=== PATIENT | male | born 1950 | race Caucasian/White ===

== ENCOUNTER 2018-11-03 05:00 | Inpatient (IN) ==
--- NOTE | 2018-09-28 12:00 | Anesthesiology Consultation ---
Date of Service September 28, 2018 Assessment & Plan (1) Encounter for pre-operative examination: Chart Review Chart Review: Acceptable Risk for Surgery and Patient seen in Pre Admission Testing Teaching & Discussion Instructed NPO after midnight before surgery, except medications with 15 cc of water. Medication instructions provided according to the PAT guidelines. History Surgery Operation Date: 11/03/18 08:50 Proposed Procedures p Left Total Hip Arthroplasty - Leonel Munoz MD Height/Weight Height: 6 ft 1 in Weight: 108.1 kg Allergies Allergy/AdvReac Type Severity Reaction Status Date / Time No Known Allergies Allergy Verified 09/21/18 11:19 Medications Home Medications Medication Instructions Recorded Confirmed Last Taken aspirin 162 mg PO QAM 09/21/18 09/21/18 Unknown cyanocobalamin (vitamin B-12) 1,000 mcg PO QAM 09/21/18 09/21/18 Unknown [Vitamin B-12] ginseng 100 mg PO QAM 09/21/18 09/21/18 Unknown omega 3-fhj-pfv-fish oil [Fish Oil] 1 tab PO QAM 09/21/18 09/21/18 Unknown multivitamin 1 tab PO 09/28/18 Unknown Past Medical History Medical History DJD (degenerative joint disease) LEFT HIP Obesity Past Surgical History Surgical History History of cataract surgery RIGHT AND LEFT History of excision of lesion LIPOMAS. ONE FROM RIGHT SHOULDER AND ONE FROM LEFT INNER THIGH History of herniorrhaphy UMBILICAL Past Anesthesia History No Hx of Anesthesia Complications and No Family Hx of Anesthesia Complications History of PONV No Motion Sickness Screening History of Motion Sickness: No Social History Smoking Status: Never smoker Do You Dip or Chew Tobacco: No Hx Alcohol Use: No Hx Substance Use: No substance use type: does not use Exercise / Class Metabolic Activity II 4-5 Yardwork/Stairs/Walk up hill (No CP or SOB with stairs but has to go slow 2/2 hip pain) Review of Systems Pt denies any recent chest pain, shortness of breath, palpitations, cough, fever or URI. Physical Exam Vital Signs BP: 131/73 P: 56 SPO2: 96% RA T: 98.0 R: 16 ENMT Mouth: + poor dentition (missing several) and + chipped teeth; no dental restorations and no loose teeth Thyromental Distance: < 3.5 Finger Breadths (3) Mallampati Class: II Mouth / Teeth: 2 1. missing Neck normal visual inspection and + facial hair (pt will shave p/t surgery); neck extension not limited Respiratory normal respiratory effort Auscultation: lungs clear to auscultation bilaterally Cardiovascular Rate/Rhythm: regular rate and regular rhythm Heart Sounds: no murmur Vessels: no carotid bruit Testing Electrocardiogram Date: 09/28/18 Findings: + SB @ (53) Increased R/S ratio in V1, consider early transition or posterior infarct. Chest X-Ray Date: 09/28/18 Findings: + NAD and + cardiomegaly (mild) Laboratory Results 09/28/18 11:45 09/28/18 11:45 Blood Type O Positive 09/28/18 11:45 Antibody Screen NEGATIVE 09/28/18 11:45 PT 10.1 Seconds (9.0-12.0) 09/28/18 11:45 INR 1.0 (0.9-1.1) 09/28/18 11:45 APTT 26.8 Seconds (21.0-31.0) 09/28/18 11:45
--- NOTE | 2018-09-28 12:07 | PAT Medication Instructions ---
Medication Instructions Date of Service September 28, 2018 Home Medications aspirin 162 mg PO QAM cyanocobalamin (vitamin B-12) 1,000 mcg PO QAM ginseng 100 mg PO QAM omega 7-jfj-jhg-fish oil [Fish Oil] 1 tab PO QAM multivitamin 1 tab PO ASK your surgeon for instructions aspirin 162 mg PO QAM STOP taking 2 weeks before surgery ginseng 100 mg PO QAM omega 2-zyz-okx-fish oil [Fish Oil] 1 tab PO QAM DO NOT take the morning of surgery cyanocobalamin (vitamin B-12) 1,000 mcg PO QAM multivitamin 1 tab PO QAM Other Notes If you have any questions please call us at [phone] or [phone] or [phone] or [phone]
--- NOTE | 2018-09-28 13:02 | XRay Report ---
XR chest Pre-admission PA/Lat CLINICAL HISTORY: Preoperative evaluation. COMPARISON STUDY: No previous studies for comparison. FINDINGS: There is no pneumothorax or pleural effusion. Mild lung hyperexpansion is noted. There is n o evidence for pulmonary edema. There is mild cardiomegaly. A 1.2 cm calcified right upper lobe nodul e is present. IMPRESSION: 1. No acute cardiopulmonary findings. 2. Mild cardiomegaly. Electronically signed by: Carlos Caldwell M.D. 09/28/2018 1:01 PM
[2018-09-28 13:17] LABS: Basophils # (auto) 0.02 K/uL (0-0.2); Basophils % (auto) 0.5 %; Eosinophils # (auto) 0.13 K/uL (0-0.5); Eosinophils % (auto) 3.2 %; Hemoglobin 14.3 g/dL (14.0-18.0); Immature Granulocytes # (auto) 0.01 K/uL (0.00-0.02); Immature Granulocytes % (auto) 0.2 %; Lymphocytes # (auto) 0.66 K/uL (1.2-3.4); Lymphocytes % (auto) 16.4 %; Mean Corpuscular Hgb Conc 33.3 g/dL (32-36); Mean Platelet Volume 11.1 fL (7.4-10.4); Monocytes # (auto) 0.48 K/uL (0.11-0.59); Monocytes % (auto) 11.9 %; Neutrophils # (auto) 2.73 K/uL (1.4-6.5); Neutrophils % (auto) 67.8 %; Platelet Count 181 K/uL (130-400); RDW Coefficient of Variation 13.6 % (11.5-14.5); RDW Standard Deviation 42.7 fL (36.4-46.3); White Blood Count 4.03 K/uL (4.8-10.8)
[2018-09-28 13:27] LABS: Partial Thromboplastin Time 26.8 Seconds (21.0-31.0); Prothrombin Time 10.1 Seconds (9.0-12.0)
[2018-09-28 13:46] LABS: BUN Creatinine Ratio 16.2 (10-20); Calcium 8.6 mg/dl (8.5-10.1); Creatinine Clr Calc Pharmacy 130.3 ml/min; Est GFR (African American) 112.3; Est GFR (Non-African American) 96.9
--- NOTE | 2018-10-31 13:38 | History and Physical Report ---
DATE OF ADMISSION: 11/03/2018 CHIEF COMPLAINT: Left hip pain, discomfort and stiffness. 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 He has had a 4-5 year history of increasing left hip pain and discomfort. He describes groin pain, thigh pain and some lateral hip pain. He has pain with walking activities. His walking tolerance is a couple blocks at best. 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 The more he stands, the more it hurts. By the end of the day, he is really struggling. He has difficulty putting his shoes and socks on. He would like to proceed with definitive treatment. PAST MEDICAL HISTORY: 1. Sleep apnea. 2. Low back pain/sciatica. 3. BPH. PAST SURGICAL HISTORY: Previous surgeries include: 1. Multiple fatty tumors removal. 2. Tonsillectomy. 3. Cataract surgery. 4. Herniorrhaphy. ALLERGIES: None. CURRENT MEDICINES: 1. Multivitamin. 2. Baby aspirin. 3. Vitamin B12. 4. Ginseng. 5. Fish oil. SOCIAL HISTORY: A 67-year-old male. 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 Five children. Rare alcohol intake. Does not smoke. FAMILY HISTORY: Noncontributory. REVIEW OF SYSTEMS: Negative for diabetes, neurologic problems, vascular problems, bleeding disorders. No chest pain or shortness of breath. No history of DVT or PE. PHYSICAL EXAMINATION: GENERAL: Reveals a healthy, pleasant middle-aged male. Looks to be in pretty good health. HEENT: Benign. NECK: Supple. No lymphadenopathy. LUNGS: Clear to auscultation. HEART: Has a regular rate and rhythm. ABDOMEN: Soft, nontender, nondistended. EXTREMITIES: Grossly neurovascularly intact except as follows: Examination of the left hip reveals the patient walks with an antalgic gait. He does limp a little bit on the left side. He has got very stiff hips with any attempt at rotation and has pain. Clinically, leg lengths are pretty equal. He can internally rotate to -5 and external rotation to 12 degrees. Negative straight leg raise. X-RAYS: X-rays of left hip were reviewed. It shows advanced left hip DJD. He has got complete loss of his joint space. He has got fairly concentric disease. Pretty significant osteophytes in and around the femoral head. Diffuse osteopenia and very thin cortices. 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 It is really affecting his quality of life and ability to do his job. PLAN: We talked about treatment. He would like to proceed with total hip replacement. We will take him to the operating room and do a left total hip replacement. The risks and benefits of the procedure were explained to the patient including but not limited to DVT, PE, , infection, neurological injury, vascular injury, bleeding problem, pain, limited range of motion, stiffness, failure to relieve symptoms, incomplete relief of symptoms, need for further surgery in the future, etc. The patient understands and desires to proceed. Informed consent was obtained. He does have fairly diffuse osteopenia. We will try to use an uncemented stem, but we may need to put a cemented stem in. We will be prepared for that. As far as discharge plans, he is planning to be discharged to home using [facility] home health program.
[2018-11-03] MEDS: LR 500ML BOLUS, THEN 15ML/HR IV SCH ×5 (05:30→17:46)
[2018-11-03] MEDS ORDERED: TRANEXAMIC ACID 1,000 MG **IV Pre-op IV SCH (06:00)
[2018-11-03] MEDS ORDERED: LR 60ML/HR IV SCH (06:00)
[2018-11-03] MEDS ORDERED: GABAPENTIN 300 MG PO SCH (06:00)
[2018-11-03] MEDS ORDERED: ACETAMINOPHEN 500 MG TAB PO SCH (06:00)
[2018-11-03] MEDS ORDERED: FAMOTIDINE 20 MG TAB PO SCH (06:00)
[2018-11-03] MEDS ORDERED: CEFAZOLIN 2000MG 2,000 MG/15 ML SYR IV SCH (06:00)
[2018-11-03] MEDS ORDERED: SCOPOLAMINE 1.5 MG TDSY TD SCH (06:00)
[2018-11-03] MEDS ORDERED: METOCLOPRAMIDE HCL 10 MG TABLET PO SCH (06:00)
[2018-11-03] MEDS ORDERED: MIDAZOLAM HCL 1 MG/ML 2ML VIAL ONE (06:25)
[2018-11-03] MEDS ORDERED: fentaNYL citrate 100 MCG/2 ML VIAL ONE (06:25)
[2018-11-03] MEDS ORDERED: BUPIVACAINE 0.5 % 5 MG/1 ML PF 10ML VIAL ONE (06:30)
[2018-11-03] MEDS ORDERED: BACITRACIN INJ 50,000 UNIT VIAL ONE (06:33)
[2018-11-03] MEDS ORDERED: BUPIVACAINE/EPINEPHRINE 0.5% MPF 1:200,000 30 ML VIAL ONE (06:33)
[2018-11-03] MEDS ORDERED: MoRPHine SULFATE PF 1 MG/ML 10 ML AMP/VIAL ONE (06:37)
--- NOTE | 2018-11-03 06:49 | History & Physical Bridge Note ---
Date of Service November 03, 2018 History & Physical Bridge Note I have examined the patient, reviewed the History & Physical and in the interval since the performance of the History & Physical I have noted the following changes of clinical significance: no changes noted
[2018-11-03] MEDS ORDERED: ePHEDrine sulfate 50 MG/ML AMP IV PRN (07:10)
[2018-11-03] MEDS ORDERED: HYDROmorphone INJ 0.5 MG/0.5 ML SYR IV PRN (07:10)
[2018-11-03] MEDS ORDERED: ONDANSETRON INJ 2 MG/ML 2 ML VIAL IV PRN (07:10)
[2018-11-03] MEDS ORDERED: MoRPHine SULFATE PF 1 MG/ML 10 ML AMP/VIAL INT SPINAL ONE (07:10)
[2018-11-03] MEDS ORDERED: LACTATED RINGER'S 500 ML IV PRN (07:10)
[2018-11-03] MEDS ORDERED: NALOXONE HCL 0.4 MG/1 ML VIAL/CARP IV PRN ×2 (07:10→09:55)
[2018-11-03] MEDS ORDERED: NALOXONE HCL 1 MG in SODIUM CHLORIDE 0.9% 1000ML 1,000 ML IV PRN (07:10)
[2018-11-03] MEDS ORDERED: NALBUPHINE HCL INJ 10 MG/ML AMP IV PRN (07:10)
[2018-11-03] MEDS ORDERED: NALOXONE HCL 0.08 MG in SYRINGE 1.8 ML IV PRN (07:10)
[2018-11-03] MEDS ORDERED: DiphenhydrAMINE HCL 50 MG/ML VIAL IV PRN (07:10)
[2018-11-03] MEDS ORDERED: MoRPHine SULFATE 2 MG/ML CARP IV PRN (07:10)
[2018-11-03] MEDS ORDERED: SODIUM CHLORIDE 0.9% 1000ML 1,000 ML IV SCH (07:15)
[2018-11-03] MEDS ORDERED: NO NARCOTICS OR SEDATIVES SCH (07:15)
[2018-11-03] MEDS ORDERED: PHENYLEPHRINE HCL 10 MG/ML VIAL ONE (07:22)
[2018-11-03] MEDS ORDERED: ePHEDrine sulfate 50 MG/ML SYR ONE (07:22)
--- NOTE | 2018-11-03 08:37 | Post Operative Brief Note ---
Immediate Post Op Note v1 Date of Surgery November 03, 2018 Pre & Post Diagnosis Operation Date: 11/03/18 07:00 Pre-Op Diagnosis: Left Hip Advanced Degenerative Joint Disease Post-Op Diagnosis: Left Hip Advanced Degenerative Joint Disease Procedure Operation Date: 11/03/18 07:00 Actual Procedures p Left Total Hip Arthroplasty--Uncemented(Left) - Leonel Munoz MD Surgeon Leonel Munoz MD Decaler Celso, PAC Estimated Blood Loss 300 Findings Consistent with Post-Op Diagnosis Fluids 1000 cc Specimens Left Femoral Head Drains Woods Catheter (A 16 Egyptian woods catheter was inserted by JEFFERY Curry, without difficulty, clear yellow urine obtained, output to be monitored by Anesthesia.) Anesthesia Type Spinal MAC Complications none Disposition Accompanied Patient To Recovery: Yes Disposition: Recovery Room
--- NOTE | 2018-11-03 09:07 | XRay Report ---
XR hip 1V LT w pelvis CLINICAL HISTORY: 67 years-old Male presenting with Left THR. TECHNIQUE: Single frontal view of the pelvis and crosstable lateral view of the left hip were obtaine d. COMPARISON: 04/09/2018. FINDINGS: There has been interval total left hip arthroplasty. Expected intra-articular and soft tissue emphyse ma. Overlying skin tariq. No gross evidence of a periprosthetic fracture allowing for portable tech nique and image quality. Visualized portion of the bony pelvis intact. Right hip joint intact. IMPRESSION: Expected postsurgical appearance status post total left hip arthroplasty. Electronically signed by: Len Nash M.D. 11/03/2018 9:06 AM
--- NOTE | 2018-11-03 09:23 | Anesthesiology Progress Note ---
Date of Service November 03, 2018 Anesthesia Post Procedure Vital Signs Vital Signs: Temp Pulse Pulse Resp BP Pulse Ox 11/03/18 09:15 36.7 C 48 L 14 112/62 100 11/03/18 09:05 57 L 18 117/66 97 11/03/18 08:55 65 16 107/54 L 97 11/03/18 08:45 69 14 106/58 L 94 11/03/18 08:36 36 C L 84 14 81/51 L 94 11/03/18 05:38 36.9 C 78 18 122/73 95 Pain Intensity Left Hip: Pain Intensity: 0 Notes Mental Status: alert / awake / arousable and participated in evaluation Patient Amnestic to Procedure: Yes Nausea / Vomiting: adequately controlled Pain: adequately controlled Airway Patency, RR, SpO2: stable & adequate BP & HR: stable & adequate Hydration State: stable & adequate Neuraxial Anesthesia: was administered and sensory block is resolving Anesthetic Complications: no major complications apparent
[2018-11-03] MEDS ORDERED: BISACODYL 10 MG SUPP PR PRN (09:55)
[2018-11-03] MEDS ORDERED: MAGNESIUM HYDROXIDE SUSP 30 ML UDC PO PRN (09:55)
[2018-11-03] MEDS ORDERED: METOCLOPRAMIDE HCL INJ 5 MG/ML 2 ML VIAL IV PRN (09:55)
[2018-11-03] MEDS ORDERED: ALUMINUM/MAGNESIUM SUSP 30 ML UDC PO PRN (09:55)
[2018-11-03] MEDS ORDERED: TAMSULOSIN HCL 0.4 MG CAP PO PRN (09:55)
--- NOTE | 2018-11-03 10:37 | Operative Report ---
DATE OF OPERATION: 11/03/2018 SURGEON: Leonel Munoz MD DIRECTOR INDEPENDENT: JEFFERY Park PREOPERATIVE DIAGNOSIS: Left hip degenerative joint disease. POSTOPERATIVE DIAGNOSIS: Same. PROCEDURE PERFORMED: Left uncemented ceramic on highly cross-linked polyethylene total hip arthroplasty. COMPLICATIONS: None. ESTIMATED BLOOD LOSS: 300 mL. FLUID REPLACEMENT: 1000 mL of crystalloid fluid replacement. ANESTHESIA: Spinal. DRAINS: None. SPECIMENS: Left femoral head sent for pathology. 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 He failed all conservative care. He elected to proceed with total hip arthroplasty. OPERATIVE FINDINGS: Operative findings revealed advanced left hip DJD. He had extensive grade 4 change to the femoral head and acetabulum. He had large osteophytes around the acetabulum. He had a very stiff hip. OPERATIVE IMPLANTS: Operative implants consisted of, 1. Biomet G7 size 64 mm acetabular shell. 2. A 6.5 cancellous acetabular screws, 1 at 35 mm in length and 1 at 30 mm in length. 3. An apex hole eliminator. 4. A highly cross-linked polyethylene liner with a 64 mm outer diameter and 40 mm inner diameter. 5. DePuy Corail size 18 KLA femoral stem. 6. A +5/40 mm ceramic articular ball. OPERATIVE PROCEDURE: The patient was taken to the operating room, identified, and placed on the operating table in supine position. All contact areas were appropriately padded. IV antibiotics were provided by anesthesia team. A spinal anesthetic had been implemented in the holding area. Chan catheter was placed in sterile fashion. The patient was then placed in the right lateral decubitus position. An axillary roll was placed. [facility] hip positioner was used for positioning. Left hip and leg were then prepped and draped in the usual sterile fashion. A posterolateral approach to the left hip was then performed through a curvilinear incision centered over the greater trochanter. Sharp dissection was carried through subcutaneous tissue down to the level of the IT band and gluteal fascia. The IT band and gluteal fascia were incised longitudinally in line with skin incision. The underlying greater trochanteric bursa was excised. The piriformis and external rotators were tagged and taken off the posterior aspect of the femur. Great care was taken throughout the procedure to protect the sciatic nerve at all times. Posterior capsulotomy was then performed leaving a flap for later repair. He had pretty extensive ossification of his acetabular labrum. Hip was internally rotated and dislocated. Femoral neck osteotomy cut was made with the final cut 1 cm above the lesser trochanter. Femoral head was removed and sent for pathology. The femur was retracted anteriorly. Attention was then drawn to the acetabulum. The acetabulum labrum was excised. Most of this was ossified and I did resect some of the ossified, particularly the posterior osteophytes. I then began reaming beginning with a size 57 and progressing up to a 63. A 64 mm Biomet G7 acetabular shell was then placed in about 40 degrees of lateral opening and 20 degrees of anteversion. It was fixed with two 6.5 cancellous acetabular screws. Some large anterior osteophytes removed. Attention was then drawn to the femur. The proximal femur was entered with a [employer] cutter followed by canal finder. I then broached beginning with a size 8 and progressing up to an 18. We got excellent fit with an 18. I was considering using a cemented stem due to his patulous canal, but we got good fit and we elected to use this uncemented stem. Calcar reamer was used to smoothen off the calcar. I then trialed the hip and the +5 articular ball seemed to recreate leg lengths equal. His hip was fully stable in full extension and external rotation, flexion to 90 degrees, internal rotation to 60+ degrees. Attention was then drawn toward placing these components. All trial components were removed. The apex hole eliminator was placed. Highly cross-linked polyethylene liner was placed. A size 18 Corail KLA femoral stem was impacted in position. A +5/36 mm ceramic articular ball was placed. Hip was located and once again found to be stable. Attention was then drawn toward closing. The wound was irrigated with copious amounts of pulsatile lavage solution. I did inject locally with 60 mL of 0.5% Marcaine with epinephrine. The posterior capsule and external rotators were repaired through drill holes in the posterior trochanter with #2 Ti-Cron suture. The IT band and gluteal fascia were then closed with #1 PDS suture in a running fashion. The subcutaneous tissue was then closed in 2 layers with the deep layer with #1 Vicryl suture and subcutaneous tissue with 2-0 Dexon suture in a buried interrupted fashion. The skin was closed with skin tariq. Leg was then cleaned, dried, and a sterile dressing of Xeroform, 4 x 4's, ABD pad, and foam tape was applied. The patient was then transferred to the recovery room in stable condition. The patient tolerated the procedure well with no complication. All needle and sponge counts were correct at the end of the operation. I attest to the content of the Intraoperative Record and any orders documented therein. Any exception s are noted below.
[2018-11-03] MEDS: DOCUSATE SODIUM 100 MG CAP PO SCH ×2 (11:27→21:46)
[2018-11-03] MEDS: CYANOCOBALAMIN 500 MCG TABLET (VITAMIN B-12) PO SCH (11:27)
[2018-11-03] MEDS: MULTIVITAMIN TAB PO SCH (11:27)
[2018-11-03] MEDS: OMEGA-3 (PURIFIED FISH OIL) 1 GM CAP PO SCH (11:28)
[2018-11-03] MEDS: ASPIRIN 81 MG ECTAB PO SCH ×2 (12:44→21:46)
[2018-11-03] MEDS: SODIUM CHLORIDE 0.9% 1000ML 1,000 ML IV SCH ×3 (13:03→23:58)
[2018-11-03] MEDS: ACETAMINOPHEN 500 MG TAB PO SCH ×2 (13:17→21:46)
--- NOTE | 2018-11-03 13:49 | Progress Note ---
DATE: 11/03/2018 SUBJECTIVE: A 67-year-old gentleman postop from a left hip replacement. She is doing well. Not having any pain yet. No chest pain, no shortness of breath. Not feeling dizzy or lightheaded. OBJECTIVE: VITAL SIGNS: Temperature 36.4. Stable. GENERAL: Examination reveals a healthy pleasant elderly male. He is sitting up in bed and eating and looks comfortable. RESPIRATORY: The lungs are clear to auscultation. CARDIOVASCULAR: Heart has regular rate and rhythm. GASTROINTESTINAL: Abdomen is soft, nontender, nondistended. EXTREMITIES: Grossly neurovascularly intact except as follows: Examination of the left lower extremity reveals the dressing to be clean, dry, and intact. Thigh is soft and supple. Leg lengths are equal. Hip is located. He is neurologically intact. He can dorsiflex and plantarflex his foot appropriately. IMAGING: X-ray of the left hip from recovery room reviewed, shows left uncemented total hip arthroplasty. Components looked to be in good position. No signs of problems. ASSESSMENT: A 67-year-old gentleman postop from a left hip replacement, doing well. Pain is controlled. Hip is located. He is neurologically intact. PLAN: 1. DVT prophylaxis including thigh-high TEDs, SCDs, and aspirin twice a day. 2. PT/OT. Weight bear as tolerated. Left total hip protocol. 3. Pain control, doing well with current pain regimen. We will try and limit narcotics to avoid confusion and side effects. 4. IV antibiotics x24 hours. 5. Disposition: He is planned to be discharged to home and do outpatient therapy once medically stable and recovered.
[2018-11-03] MEDS ORDERED: INFLUENZA ADMINISTRATION CHARGE ONE (16:00)
[2018-11-03] MEDS ORDERED: INFLUENZA VACCINE HIGH DOSE 65+ 0.5 ML SYR IM ONE (16:00)
[2018-11-03] MEDS ORDERED: TRANEXAMIC ACID 1,000 MG in 0.9 % SODIUM CHLORIDE 100 ML IV SCH (17:00)
[2018-11-03] MEDS: CEFAZOLIN 2000MG 2,000 MG/15 ML SYR IV SCH ×2 (17:47→23:57)
[2018-11-03] MEDS: CHECK SCOPOLAMINE PATCH PLACEMENT SCH (17:47)
[2018-11-03] MEDS: FERROUS GLUCONATE 324 MG TAB PO SCH (17:48)
[2018-11-03] MEDS: ASCORBIC ACID 500 MG TAB PO SCH (17:48)
[2018-11-03] MEDS: SENNA 8.6 MG TAB PO SCH (21:46)
[2018-11-04] MEDS: CHECK SCOPOLAMINE PATCH PLACEMENT SCH (00:01)
[2018-11-04] MEDS ORDERED: DC INTRASPINAL MORPHINE ONE (01:10)
[2018-11-04] MEDS ORDERED: TRAMADOL HCL 50 MG TABLET PO PRN (01:10)
[2018-11-04] MEDS ORDERED: HYDROmorphone INJ 0.5 MG/0.5 ML SYR IV PRN (01:10)
[2018-11-04] MEDS ORDERED: ONDANSETRON INJ 2 MG/ML 2 ML VIAL IV PRN (01:10)
[2018-11-04] MEDS: KETOROLAC TROMETHAMINE 15 MG/ML VIAL IV SCH ×4 (04:38→21:11)
[2018-11-04] MEDS: ACETAMINOPHEN 500 MG TAB PO SCH ×3 (05:39→21:50)
[2018-11-04] MEDS ORDERED: Nursing to Pharmacy Communication ONE (05:50)
[2018-11-04 06:43] LABS: Basophils # (auto) 0.01 K/uL (0-0.2); Basophils % (auto) 0.2 %; Eosinophils # (auto) 0.06 K/uL (0-0.5); Eosinophils % (auto) 0.9 %; Hematocrit (blood only) 36.8 % (42-52); Hemoglobin 12.5 g/dL (14.0-18.0); Immature Granulocytes # (auto) 0.02 K/uL (0.00-0.02); Immature Granulocytes % (auto) 0.3 %; Lymphocytes # (auto) 0.41 K/uL (1.2-3.4); Lymphocytes % (auto) 6.3 %; Mean Corpuscular Volume 85.6 fL (80-100); Mean Platelet Volume 10.7 fL (7.4-10.4); Monocytes # (auto) 0.98 K/uL (0.11-0.59); Neutrophils # (auto) 5.07 K/uL (1.4-6.5); Neutrophils % (auto) 77.3 %; Platelet Count 135 K/uL (130-400); RDW Coefficient of Variation 13.7 % (11.5-14.5); RDW Standard Deviation 42.6 fL (36.4-46.3); White Blood Count 6.55 K/uL (4.8-10.8)
[2018-11-04 07:19] LABS: Albumin Level 2.8 gm/dl (3.4-5.0); BUN Creatinine Ratio 17.3 (10-20); Calcium 7.8 mg/dl (8.5-10.1); Creatinine Clr Calc Pharmacy 105.7 ml/min; Est GFR (Non-African American) 88.9; Potassium 3.9 mmol/L (3.5-5.1)
[2018-11-04 07:20] LABS: Phosphorus 3.2 mg/dl (2.5-4.9)
[2018-11-04] MEDS: CYANOCOBALAMIN 500 MCG TABLET (VITAMIN B-12) PO SCH (08:33)
[2018-11-04] MEDS: FERROUS GLUCONATE 324 MG TAB PO SCH ×2 (08:33→18:02)
[2018-11-04] MEDS: MULTIVITAMIN TAB PO SCH (08:33)
[2018-11-04] MEDS: ASPIRIN 81 MG ECTAB PO SCH ×2 (08:33→21:11)
[2018-11-04] MEDS: DOCUSATE SODIUM 100 MG CAP PO SCH ×2 (08:33→21:11)
[2018-11-04] MEDS: ASCORBIC ACID 500 MG TAB PO SCH ×2 (08:34→18:03)
[2018-11-04] MEDS: OMEGA-3 (PURIFIED FISH OIL) 1 GM CAP PO SCH (08:34)
--- NOTE | 2018-11-04 12:30 | Progress Note ---
DATE: 11/04/2018 SUBJECTIVE: A 67-year-old gentleman postop day #1 from a left hip replacement. He is doing quite well. Really no pain at rest. Has a little bit of pain with weightbearing. No chest pain or shortness of breath. Not feeling dizzy or lightheaded. OBJECTIVE: VITAL SIGNS: Temperature 36.8. Vital signs stable. GENERAL: Physical examination shows a healthy, pleasant elderly male. He is sitting up at his bedside chair and looks pretty comfortable. EXTREMITIES: Examination of the left hip reveals the leg to be well aligned. The leg lengths are equal. Hip is located. Dressing is clean, dry and intact. Thigh is soft and supple. He is neurologically intact. LABORATORY DATA: Hemoglobin 12.5, hematocrit 36.8. Electrolytes are stable. ASSESSMENT: A 67-year-old gentleman postop day #1 from a left hip replacement, doing pretty well. Pain controlled. Hip is located. He is neurologically intact. PLAN: 1. DVT prophylaxis including thigh-high TEDs, SCDs, and aspirin twice a day. 2. PT/OT. Weight bear as tolerated. Left total hip protocol. 3. Pain control, doing well with current pain regimen. 4. Disposition: He is planning to be discharged to home. He is going to do outpatient therapy once adequately recovered.
[2018-11-04] MEDS: SENNA 8.6 MG TAB PO SCH ×2 (21:11→22:01)
[2018-11-05] MEDS: KETOROLAC TROMETHAMINE 15 MG/ML VIAL IV SCH ×2 (04:41→10:15)
[2018-11-05] MEDS: ACETAMINOPHEN 500 MG TAB PO SCH (05:54)
--- NOTE | 2018-11-05 07:35 | Progress Note ---
DATE: 11/05/2018 SUBJECTIVE: A 67-year-old gentleman postop day 2 from a left hip replacement. He is doing well. Really reports minimal pain. No chest pain or shortness of breath. Not feeling dizzy or lightheaded. OBJECTIVE: VITAL SIGNS: Temperature 37.3. Vital signs stable. GENERAL: Physical examination shows a pleasant elderly male. He is sitting up in his bedside chair, looks quite comfortable. EXTREMITIES: Examination of the left hip reveals the dressing to be clean, dry and intact. Thigh is soft and supple. Leg lengths are equal. Hip is located. He is neurologically intact. ASSESSMENT: A 67-year-old gentleman postop day 2 from left hip replacement, doing pretty well. His pain is controlled. Hip is located. He is neurologically intact. PLAN: 1. DVT prophylaxis including thigh-high TEDs, SCDs, and aspirin twice a day. 2. PT/OT. Weight bear as tolerated. Left total hip protocol. 3. Pain control, doing well with current pain regimen. 4. Disposition: Plan to discharge to home and he is going to do outpatient therapy.
[2018-11-05] MEDS: ASCORBIC ACID 500 MG TAB PO SCH (07:46)
[2018-11-05] MEDS: FERROUS GLUCONATE 324 MG TAB PO SCH (07:46)
[2018-11-05] MEDS: MULTIVITAMIN TAB PO SCH (07:46)
[2018-11-05] MEDS: DOCUSATE SODIUM 100 MG CAP PO SCH (07:46)
[2018-11-05] MEDS: ASPIRIN 81 MG ECTAB PO SCH (07:46)
[2018-11-05] MEDS: OMEGA-3 (PURIFIED FISH OIL) 1 GM CAP PO SCH (07:47)
[2018-11-05] MEDS: CYANOCOBALAMIN 500 MCG TABLET (VITAMIN B-12) PO SCH (07:47)
--- NOTE | 2018-11-10 14:00 | Discharge Summary ---
ADMITTING PHYSICIAN AND SURGEON: Leonel Munoz MD ADMITTING DIAGNOSIS: Left hip degenerative joint disease. SURGERY PERFORMED: Left total hip arthroplasty. SECONDARY DIAGNOSES: Sleep apnea, low back pain, sciatica, benign prostatic hypertrophy. CONSULTS: None obtained. HISTORY AND PHYSICAL EXAMINATION: Well documented in the patient's chart. HOSPITAL COURSE: The patient was admitted on 11/03/2018, underwent total hip arthroplasty, tolerated the procedure well. There were no complications. He was transferred to the PACU postoperatively and later to the orthopedic floor for further care. He was given Ancef for antibiotic prophylaxis, CESAR stockings, SCDs and aspirin for DVT prophylaxis. Hemoglobin, hematocrit and vital signs were monitored during his hospital stay and remained stable, did not require any blood transfusions. There were no complications. By postoperative day 2, he was tolerating a regular diet, pain was controlled with oral pain medicine. He was participating in physical therapy. On postop day 2, he was discharged home. He was given printed discharge instructions including new prescriptions for extra-strength Tylenol, aspirin and tramadol. Continue his home medications with the exception of his home dose of aspirin which were changed. Continue physical therapy, weightbearing as tolerated, CESAR stockings, total hip precautions. Follow up approximately 2 weeks postoperatively or sooner if there are any problems or concerns.
== END 2018-11-05 10:33 | disposition home or self-care (01) | DRG 470 ==
LOC: ASU 05:00 → 3E 08:43

== ENCOUNTER 2021-11-23 07:10 | Inpatient (IN) ==
[~2021-11-23 07:10] MED LIST: TRANEXAMIC ACID / 0.7% NACL 1,000 MG/100 ML BAG IV SCH
--- NOTE | 2021-11-23 07:26 | Emergency Department Note ---
History of Present Illness General Chief complaint: Fall Stated complaint: FALL HIP PAIN Time Seen by Provider: 11/23/21 07:13 History of Present Illness Provider complaint: Right hip pain Onset (ago): hour(s) (2.5) Location: lower extremity and right Radiation: non-radiation Severity: moderate Pain Consistency: + constant Quality: + stabbing and + sharp Relieved By: + immobilization Exacerbated By: + movement Associated symptoms: no chest pain, no cough, no fever/chills, no headaches, no nausea/vomiting or no shortness of breath 70-year-old male presents to emergency department for right hip pain. Patient states he fell on ice around 4:45 AM while try to get out of his truck. Patient has a history of a left hip prosthesis but has no problems with his right hip. Patient denies hitting his head. Denies any headache, neck pain, chest pain, abdominal pain, back pain. Pain is made better with immobilization worsened with movement. Pain is moderate in nature. Home Medications Medication Instructions Recorded Confirmed Type cyanocobalamin (vitamin B-12) 1,000 mcg PO QAM 09/21/18 11/23/21 History 1,000 mcg tablet (Vitamin B-12) ginseng 100 mg capsule 100 mg PO QAM 09/21/18 11/23/21 History omega 7-tzs-kiv-fish oil 1,000 mg 1 tab PO QAM 09/21/18 11/23/21 History (120 mg-180 mg) capsule (Fish Oil) multivitamin 1 tab PO QAM 09/28/18 11/23/21 History atorvastatin 40 mg tablet 40 mg PO HS 11/23/21 11/23/21 History Allergies Allergy/AdvReac Type Severity Reaction Status Date / Time No Known Allergies Allergy Verified 11/23/21 08:14 Past Med/Surg History Medical History (Updated 11/23/21 @ 09:19 by Tony Dela Cruz) DJD (degenerative joint disease) LEFT HIP Obesity Surgical History History of cataract surgery RIGHT AND LEFT History of excision of lesion LIPOMAS. 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 Beliefs That Will Affect Care: None marital status: Current Living Situation: Spouse Feels Safe at Home: Yes Assistive Devices: Glasses and Walker Review of Systems A total of 6 systems reviewed and were otherwise negative Physical Exam Vital Signs Vital Signs - 24 hr 11/23/21 07:20 11/23/21 09:00 Temperature 37.0 C Temperature Source Oral Pulse Rate 56 L Pulse Rate [Right Radial] 55 L Pulse Rhythm Regular Pulse Rhythm [Right Radial] Regular Pulse Strength Normal Pulse Strength [Right Radial] Normal Respiratory Rate 17 18 Respiratory Effort / Characteristics Non-Labored Spontaneous Non-Labored Spontaneous Respiratory Depth Normal Normal Respiratory Pattern Regular Regular Blood Pressure 156/92 H Blood Pressure [Right Arm] 142/73 H Blood Pressure Mean 113 Blood Pressure Mean [Right Arm] 96 Blood Pressure Position Lying Blood Pressure Position [Right Arm] Lying Pulse Oximetry 97 97 Oxygen Delivery Method Room Air Room Air Sepsis Recent Fever Within 48 Hours No Sepsis New/Unexplained Change in Mental Status N/A Sepsis Action Taken by Nursing No Action Required Physical Exam GENERAL: He is oriented to person, place, and time. He appears well-developed and well-nourished. He does not appear distressed. HENT: Exam performed. - Head: Normocephalic and atraumatic. - Right Ear: External ear normal. No mastoid tenderness. - Left Ear: External ear normal. No mastoid tenderness. - Mouth/Throat: The oropharynx is clear and moist. No trismus in the jaw. No dental abscesses or uvula swelling. No oropharyngeal exudate or tonsillar abscesses. EYES: Conjunctivae and EOM are normal. Pupils are equal, round, and reactive to light. Right eye exhibits no discharge. Left eye exhibits no discharge. No scleral icterus. NECK: Normal range of motion. Neck supple. No JVD present. No spinous process tenderness present. No carotid bruit present. No rigidity. No tracheal deviation and normal range of motion present. No Brudzinski's sign and no Kernig's sign noted. CV: Normal rate, regular rhythm, normal heart sounds and intact distal pulses. There is no peripheral edema. Palpable radial pulses bue. PULM/CHEST: Effort normal and breath sounds normal. No respiratory distress. No stridor. He has no wheezes. He has no rales. - Chest Wall: He exhibits no tenderness. ABD: The abdomen is soft. Bowel sounds are normal. He has no distension. No mass is present. There is no tenderness. There is no rebound, no guarding, no Whittaker's sign and no tenderness at McBurney's point. Rovsig negative. MUSC/SKEL: Pelvis stable. Pain on palpation of the right hip and right proximal femur. Palpable DP and PT pulses bilateral lower extremities. LYMPH: No cervical adenopathy. NEURO: Motor and sensation grossly intact. Course Course 0713: The patient was evaluated in room B6. A complete history and physical exam was performed Medical Decision Making Laboratory Data Result diagrams: 11/23/21 08:30 11/23/21 08:30 Lab Results 11/23/21 Range/Units 08:30 WBC 10.43 (4.8-10.8) K/uL RBC 4.79 (4.7-6.1) M/uL Hgb 14.3 (14.0-18.0) g/dL Hct 42.6 (42-52) % MCV 88.9 (80-100) fL MCH 29.9 (25-34) pg MCHC 33.6 (32-36) g/dL RDW Std Deviation 43.1 (36.4-46.3) fL RDW Coeff of Alyse 13.3 (11.5-14.5) % Plt Count 178 (130-400) K/uL MPV 11.1 H (7.4-10.4) fL Immature Gran % (Auto) 0.3 % Neut % (Auto) 88.8 % Lymph % (Auto) 5.4 % Karnes % (Auto) 4.9 % Eos % (Auto) 0.5 % Baso % (Auto) 0.1 % Neut # (Auto) 9.27 H (1.4-6.5) K/uL Lymph # (Auto) 0.56 L (1.2-3.4) K/uL [place]es # (Auto) 0.51 (0.11-0.59) K/uL Eos # (Auto) 0.05 (0-0.5) K/uL Baso # (Auto) 0.01 (0-0.2) K/uL Immature Gran # (Auto) 0.03 H (0.00-0.02) K/uL Imaging Data Radiologist's Impression: Femur X-Ray 11/23/21 07:19 SINGLE VIEW PELVIS; 2 VIEWS RIGHT FEMUR CLINICAL HISTORY: Fall with right hip injury. FINDINGS: 2 AP supine views of the pelvis with AP and crosstable lateral views of the right femur are correlated with pelvic radiograph dated 12/28/2018. The skeletal structures are osteopenic. There is no radiographic evidence of acute fracture involving the pelvis or the left hip. A left hip arthroplasty is in near-anatomic alignment. There is a minimally displaced intertrochanteric fracture of the right proximal femur with overlying soft tissue edema. The distal right femur is intact. The right knee joint is grossly maintained. Lumbosacral spondylosis is partially visualized. Moderate degenerative joint space narrowing is noted in the right hip. IMPRESSION: 1. Intertrochanteric fracture of the right femur. 2. No fracture is seen involving the bony pelvis or the left proximal femur. Electronically signed by: Nicholas Burroughs M.D. 11/23/2021 8:02 AM Pelvis X-Ray 11/23/21 07:20 SINGLE VIEW PELVIS; 2 VIEWS RIGHT FEMUR CLINICAL HISTORY: Fall with right hip injury. FINDINGS: 2 AP supine views of the pelvis with AP and crosstable lateral views of the right femur are correlated with pelvic radiograph dated 12/28/2018. The skeletal structures are osteopenic. There is no radiographic evidence of acute fracture involving the pelvis or the left hip. A left hip arthroplasty is in near-anatomic alignment. There is a minimally displaced intertrochanteric fracture of the right proximal femur with overlying soft tissue edema. The distal right femur is intact. The right knee joint is grossly maintained. Lumbosacral spondylosis is partially visualized. Moderate degenerative joint space narrowing is noted in the right hip. IMPRESSION: 1. Intertrochanteric fracture of the right femur. 2. No fracture is seen involving the bony pelvis or the left proximal femur. Electronically signed by: Nicholas Burroughs M.D. 11/23/2021 8:02 AM Chest X-Ray 11/23/21 07:56 SINGLE VIEW CHEST CLINICAL HISTORY: Fall. Right hip fracture FINDINGS: 2 AP, portable, upright chest radiographs are compared to study dated 09/28/2018. Heart is enlarged noting atherosclerotic calcification of the thoracic aorta. The pulmonary vasculature is noncongested. There are calcified right hilar lymph nodes. Chronic interstitial thickening is similar to previous. There is bibasilar scarring/atelectasis. No airspace consolidation or large pleural effusion is identified. Scattered calcified granulomas are unchanged. No pneumothorax is seen. The skeletal structures are osteopenic. The bony thorax is grossly intact. IMPRESSION: Cardiomegaly with no acute cardiopulmonary abnormality. ACT 112: Negative or not required by law. Electronically signed by: Nicholas Burroughs M.D. 11/23/2021 8:05 AM ECG Data Indication: + other (preop) Rate (beats per minute): 51 Rhythm: + normal sinus ECG Intervals/blocks: + Normal QRS, + Normal NE and + Normal QT-c ECG ST segments: + Normal ST segments MDM Narrative X-ray shows right-sided femr fracture. [facility]oped[facility] on consult. Impression & Plan Femur fracture, right Discharge Plan Visit Data Chief Complaint: Fall Stated Complaint: FALL HIP PAIN ED Provider: Tony Dela Cruz Discharge Problem: Femur fracture, right Patient Disposition: Admitted As Inpatient Forms Stand Alone Forms: [facility] Prescriptions Prescriptions: No Action ginseng 100 mg Capsule 100 mg PO QAM RF: 0 cyanocobalamin (vitamin B-12) [Vitamin B-12] 1,000 mcg Tablet 1,000 mcg PO QAM RF: 0 omega 3-adv-uhh-fish oil [Fish Oil] 1,000 mg (120 mg-180 mg) Capsule 1 tab PO QAM RF: 0 multivitamin Tablet 1 tab PO QAM RF: 0 atorvastatin 40 mg tablet 40 mg PO HS RF: 0 Referrals Referrals: Luciana Lam PA-C [Outside Practitioners] -
--- NOTE | 2021-11-23 08:04 | XRay Report ---
SINGLE VIEW PELVIS; 2 VIEWS RIGHT FEMUR CLINICAL HISTORY: Fall with right hip injury. FINDINGS: 2 AP supine views of the pelvis with AP and crosstable lateral views of the right femur are correlated with pelvic radiograph dated 12/28/2018. The skeletal structures are osteopenic. There is no radiographic evidence of acute fracture involving the pelvis or the left hip. A left hip arthropla sty is in near-anatomic alignment. There is a minimally displaced intertrochanteric fracture of the r ight proximal femur with overlying soft tissue edema. The distal right femur is intact. The right kne e joint is grossly maintained. Lumbosacral spondylosis is partially visualized. Moderate degenerative joint space narrowing is noted in the right hip. IMPRESSION: 1. Intertrochanteric fracture of the right femur. 2. No fracture is seen involving the bony pelvis or the left proximal femur. Electronically signed by: Nicholas Burroughs M.D. 11/23/2021 8:02 AM
--- NOTE | 2021-11-23 08:06 | XRay Report ---
SINGLE VIEW CHEST CLINICAL HISTORY: Fall. Right hip fracture FINDINGS: 2 AP, portable, upright chest radiographs are compared to study dated 09/28/2018. Heart is enlarged noting atherosclerotic calcification of the thoracic aorta. The pulmonary vasculature is non congested. There are calcified right hilar lymph nodes. Chronic interstitial thickening is similar to previous. There is bibasilar scarring/atelectasis. No airspace consolidation or large pleural effusi on is identified. Scattered calcified granulomas are unchanged. No pneumothorax is seen. The skeletal structures are osteopenic. The bony thorax is grossly intact. IMPRESSION: Cardiomegaly with no acute cardiopulmonary abnormality. ACT 112: Negative or not required by law. Electronically signed by: Nicholas Burroughs M.D. 11/23/2021 8:05 AM
[2021-11-23] MEDS ORDERED: MoRPHine SULFATE 2 MG/ML CARP IV PRN ×2 (08:07→13:44)
[2021-11-23] MEDS ORDERED: MoRPHine SULFATE 4 MG/ML 1 ML CARP\\VIAL IV PRN ×2 (08:07→13:44)
[2021-11-23] MEDS ORDERED: SODIUM CHLORIDE 0.9% 1000ML 1,000 ML IV SCH (08:15)
[2021-11-23 09:02] LABS: Basophils # (auto) 0.01 K/uL (0-0.2); Basophils % (auto) 0.1 %; Eosinophils # (auto) 0.05 K/uL (0-0.5); Eosinophils % (auto) 0.5 %; Hematocrit (blood only) 42.6 % (42-52); Hemoglobin 14.3 g/dL (14.0-18.0); Immature Granulocytes # (auto) 0.03 K/uL (0.00-0.02); Immature Granulocytes % (auto) 0.3 %; Lymphocytes # (auto) 0.56 K/uL (1.2-3.4); Lymphocytes % (auto) 5.4 %; Mean Corpuscular Hemoglobin 29.9 pg (25-34); Mean Corpuscular Hgb Conc 33.6 g/dL (32-36); Mean Corpuscular Volume 88.9 fL (80-100); Mean Platelet Volume 11.1 fL (7.4-10.4); Monocytes # (auto) 0.51 K/uL (0.11-0.59); Monocytes % (auto) 4.9 %; Neutrophils # (auto) 9.27 K/uL (1.4-6.5); Neutrophils % (auto) 88.8 %; Platelet Count 178 K/uL (130-400); RDW Coefficient of Variation 13.3 % (11.5-14.5); RDW Standard Deviation 43.1 fL (36.4-46.3); Red Blood Count 4.79 M/uL (4.7-6.1); White Blood Count 10.43 K/uL (4.8-10.8)
[2021-11-23 09:14] LABS: Albumin Globulin Ratio 1.6 (0.9-2); Albumin Level 3.8 gm/dl (3.4-5.0); BUN Creatinine Ratio 29.7 (10-20); Bilirubin,Total 0.7 mg/dl (0.2-1.0); Calcium 8.6 mg/dl (8.5-10.1); Creatinine Clr Calc Pharmacy 134.2 ml/min; Est GFR (African American) 113.4 ml/min; Est GFR (Non-African American) 97.8 ml/min; Globulin 2.4 gm/dl (2.5-4.0); Partial Thromboplastin Ratio 0.9; Partial Thromboplastin Time 24.6 Seconds (21.0-31.0); Total Protein 6.2 gm/dl (6.0-8.3)
[2021-11-23 09:25] LABS: Appearance Urine Clear (Clear); Bilirubin Urine Negative (Negative); Blood Urine Negative (Negative); Color Urine Yellow; Glucose Urine UA Negative (Negative); Ketones Urine Negative (Negative); Leukocyte Esterase Urine Negative (Negative); Nitrite Urine Negative (Negative); Protein Urine Negative (Negative); Specific Gravity Urine 1.019 (1.000-1.030); Urobilinogen Urine Negative (Negative)
--- NOTE | 2021-11-23 09:53 | Anesthesiology Consultation ---
Date of Service November 23, 2021 Assessment & Plan (1) Encounter for pre-operative examination: Chart Review Chart Review: Acceptable Risk for Surgery and Patient NOT seen in Pre Admission Testing Consults Requested none History Surgery Operation Date: 11/23/21 07:00 Proposed Procedures p Right Long Troch Nail - Leonel Munoz MD Height/Weight Height: 6 ft 1 in Weight: 107.5 kg Allergies Allergy/AdvReac Type Severity Reaction Status Date / Time No Known Allergies Allergy Verified 11/23/21 08:14 Medications Home Medications Medication Instructions Recorded Confirmed Last Taken cyanocobalamin (vitamin B-12) 1,000 mcg PO QAM 09/21/18 11/23/21 11/23/21 1,000 mcg tablet (Vitamin B-12) ginseng 100 mg capsule 100 mg PO QAM 09/21/18 11/23/21 11/23/21 omega 8-eau-lzg-fish oil 1,000 mg 1 tab PO QAM 09/21/18 11/23/21 11/23/21 (120 mg-180 mg) capsule (Fish Oil) multivitamin 1 tab PO QAM 09/28/18 11/23/21 11/23/21 atorvastatin 40 mg tablet 40 mg PO HS 11/23/21 11/23/21 11/22/21 Active Medications Generic Name Dose Route Start Last Admin Trade Name Freq PRN Reason Stop Dose Admin Sodium Chloride 1,000 mls @ 75 mls/hr 11/23/21 08:15 11/23/21 09:31 Nss 1000ml IV 11/23/21 21:34 75 mls/hr .[id number] Administration Past Medical History Medical History DJD (degenerative joint disease) LEFT HIP Dyslipidemia Obesity Past Surgical History Surgical History History of cataract surgery RIGHT AND LEFT History of excision of lesion LIPOMAS. ONE FROM RIGHT SHOULDER AND ONE FROM LEFT INNER THIGH History of herniorrhaphy UMBILICAL Social History Smoking Status: Never smoker Hx Alcohol Use: No Hx Substance Use: No substance use type: does not use Physical Exam Vital Signs Last Vital Signs Temp 37.0 C 11/23/21 07:20 Pulse 55 L 11/23/21 09:00 Resp 18 11/23/21 09:00 BP 142/73 H 11/23/21 09:00 Pulse Ox 97 11/23/21 09:00 Testing Laboratory Results 11/23/21 08:30 11/23/21 08:30 PT 10.0 Seconds (9.0-12.0) 11/23/21 08:30 INR 1.0 (0.9-1.1) 11/23/21 08:30 APTT 24.6 Seconds (21.0-31.0) 11/23/21 08:30 Urine Color Yellow 11/23/21 09:00 Urine Appearance Clear (Clear) 11/23/21 09:00 Urine pH 7.0 (4.5-7.5) 11/23/21 09:00 Ur Specific [place] 1.019 (1.000-1.030) 11/23/21 09:00 Urine Protein Negative (Negative) 11/23/21 09:00 Urine Glucose (UA) Negative (Negative) 11/23/21 09:00 Urine Ketones Negative (Negative) 11/23/21 09:00 Urine Nitrite Negative (Negative) 11/23/21 09:00 Ur Leukocyte Esterase Negative (Negative) 11/23/21 09:00 Electrocardiogram Date: 11/23/21 Findings: + SB @ (51) Chest X-Ray Date: 11/23/21 SINGLE VIEW CHEST CLINICAL HISTORY: Fall. Right hip fracture FINDINGS: 2 AP, portable, upright chest radiographs are compared to study dated 09/28/2018. Heart is enlarged noting atherosclerotic calcification of the thoracic aorta. The pulmonary vasculature is noncongested. There are calcified right hilar lymph nodes. Chronic interstitial thickening is similar to previous. There is bibasilar scarring/atelectasis. No airspace consolidation or large pleural effusion is identified. Scattered calcified granulomas are unchanged. No pneumothorax is seen. The skeletal structures are osteopenic. The bony thorax is grossly intact. IMPRESSION: Cardiomegaly with no acute cardiopulmonary abnormality. ACT 112: Negative or not required by law.
--- NOTE | 2021-11-23 10:03 | Orthopedic Consultation ---
Date of Service November 23, 2021 Assessment & Plan (1) Femur fracture, right: He was educated on this problem and I discussed treatment recommendations with him. We do recommend surgical fixation, specifically IM nailing of the right hip/femur. Procedure was explained including risks, benefits, alternatives to surgery. He wants to proceed with surgery. Consent obtained. We will plan on doing this today. Continue NPO. History of Present Illness Reason for Consultation: . Requesting Physician: . . Mr. Patterson is a 70 year old patient that was going out to start up his van this morning, slipped on the ice and fell, injuring his right hip. No other complaints at this time. Xrays show an intertroch fracture of the right hip. He had some black coffee earlier this morning. Otherwise he's been npo. He denies any hip pain prior to the fall. Allergies Allergy/AdvReac Type Severity Reaction Status Date / Time No Known Allergies Allergy Verified 11/23/21 08:14 Home Medications Medication Instructions Recorded Confirmed Type cyanocobalamin (vitamin B-12) 1,000 mcg PO QAM 09/21/18 11/23/21 History 1,000 mcg tablet (Vitamin B-12) ginseng 100 mg capsule 100 mg PO QAM 09/21/18 11/23/21 History omega 6-hvl-uok-fish oil 1,000 mg 1 tab PO QAM 09/21/18 11/23/21 History (120 mg-180 mg) capsule (Fish Oil) multivitamin 1 tab PO QAM 09/28/18 11/23/21 History atorvastatin 40 mg tablet 40 mg PO HS 11/23/21 11/23/21 History Past Med/Surg History Medical History DJD (degenerative joint disease) LEFT HIP Dyslipidemia Obesity Surgical History History of cataract surgery RIGHT AND LEFT History of excision of lesion LIPOMAS. ONE FROM RIGHT SHOULDER AND ONE FROM LEFT INNER THIGH History of herniorrhaphy UMBILICAL Social History Smoking Status: Never smoker Second Hand Exposure: No; Hx Alcohol Use: No Hx Substance Use: No Preferred Language: Italian Communication Ability: Effective Powerhouse Engineer Required: No Beliefs That Will Affect Care: None marital status: Current Living Situation: Spouse Feels Safe at Home: Yes Assistive Devices: Glasses and Walker Review of Systems All systems reviewed & are unremarkable except as noted in HPI & below. Physical Exam . alert and oriented. NAD. Right leg: shortened and externally rotated. Pain in the right groin with minimal movement. NVI. Able to DF and PF appropriately. Skin intact Results & Data Results & Data Laboratory Results . Diagnostic Findings .xrays show an intertroch fracture of the right hip PG Care Time/CCT Total # of Minutes Spent Total Time Spent with Patient: Total time spent is greater than 50% in coordination of care (as documented) at patient's floor/unit and/or counseling patient: Coding Level of Care Code 82177 Inpt Consult Level 4 Diagnoses Femur fracture, right S72.91XA Encounter type: initial encounter Femur location: unspecified portion of femur Fracture morphology: unspecified fracture morphology Fracture type: closed (1) Femur fracture, right Encounter type: initial encounter Femur location: unspecified portion of femur Fracture morphology: unspecified fracture morphology Fracture type: closed Qualified Code(s): S72.91XA - Unspecified fracture of right femur, initial encounter for closed fracture
--- NOTE | 2021-11-23 10:22 | History & Physical Report ---
Date of Service November 23, 2021 Assessment & Plan (1) Femur fracture, right: Plan: Admit to [facility] Patient presenting from home after slipping on the ice while trying to getting out of his van. In the ED, found to have a right intertrochanteric femur fracture. Patient is able to complete 4 METS of activity without cardiopulmonary complaints. EKG and CXR reviewed Patient is considered acceptable risk to proceed to surgery. Further management as per orthopedics. (2) Dyslipidemia: Plan: Continue statin (3) DVT prophylaxis: Plan: SCDs for now, postop DVT prophylaxis as per orthopedics Admission and Anticipated Discharge Date Admission Date: November 23, 2021 History of Present Illness Chief Complaint: Right hip pain Primary Care Provider: Sekou Mccoy, 70-year-old male with PMH dyslipidemia, and other problems listed below who presents the ED for evaluation of right hip pain. Patient reports he was getting out of his van earlier this morning when he slipped on the ice and fell onto his right hip. He was able to get up and get back into the van and call for help. Patient reports he was unable to bear weight onto his right leg. Patient was then brought to the ED for further evaluation. Patient denies striking his head or associated loss of consciousness. Patient reports he otherwise has been feeling well recently. Reports that he is very active. Patient reports that he routinely climbs flights of stairs and does not have any cardiopulmonary complaints. Denies any other recent illnesses, fevers, chills. No chest pain or shortness of breath. Denies lightheadedness, dizziness, diaphoresis, syncopal events. No abdominal pain, nausea, vomiting, diarrhea. Denies urinary symptoms. In the ED, patient is found to have a right intertrochanteric femur fracture. Patient is hemodynamically stable. Pain is currently well controlled. Allergies Allergy/AdvReac Type Severity Reaction Status Date / Time No Known Allergies Allergy Verified 11/23/21 08:14 Home Medications Medication Instructions Recorded Confirmed Type cyanocobalamin (vitamin B-12) 1,000 mcg PO QAM 09/21/18 11/23/21 History 1,000 mcg tablet (Vitamin B-12) ginseng 100 mg capsule 100 mg PO QAM 09/21/18 11/23/21 History omega 2-ffm-tyd-fish oil 1,000 mg 1 tab PO QAM 09/21/18 11/23/21 History (120 mg-180 mg) capsule (Fish Oil) multivitamin 1 tab PO QAM 09/28/18 11/23/21 History atorvastatin 40 mg tablet 40 mg PO HS 11/23/21 11/23/21 History Past Med/Surg History Medical History DJD (degenerative joint disease) LEFT HIP Dyslipidemia Obesity Surgical History History of cataract surgery RIGHT AND LEFT History of excision of lesion LIPOMAS. ONE FROM RIGHT SHOULDER AND ONE FROM LEFT INNER THIGH History of herniorrhaphy UMBILICAL Family History Sister Skin cancer Social History Smoking Status: Never smoker Second Hand Exposure: No; Hx Alcohol Use: No Hx Substance Use: No Preferred Language: Gabonese Communication Ability: Effective Land Acquisition Analyst Required: No Beliefs That Will Affect Care: None marital status: Current Living Situation: Spouse Feels Safe at Home: Yes Assistive Devices: Glasses and Walker Review of Systems Review of Systems: ROS per HPI, all other systems reviewed and negative Physical Exam Constitutional: WD/WN, vitals as above Eyes: PERRL, conjunctivae normal, anicteric sclerae ENMT: external ear and nose normal, oropharynx normal Respiratory: normal respiratory effort, lungs clear to auscultation Cardiovascular: Rate/Rhythm: regular rate and regular rhythm Vessels: normal peripheral pulses Extremities: no edema Gastrointestinal (Abdomen): normal bowel sounds, soft, nontender, no hepatosplenomegaly Musculoskeletal: Extremities: no cyanosis and no clubbing RLE mildly shortened and externally rotated Skin: no rashes, warm and dry Neurologic: PERRL, EOMI, accommodation nl, no face palsy, no dysarthria Psychiatric: A+Ox3, euthymic affect Results & Data Results & Data ([place]) Vital Signs (Past 12 Hours) Vital Signs Temp Pulse Pulse Resp BP BP Pulse Ox 11/23/21 09:00 55 L 18 142/73 H 97 11/23/21 07:20 37.0 C 56 L 17 156/92 H 97 Laboratory Results Short CBC 11/23/21 Range/Units 08:30 WBC 10.43 (4.8-10.8) K/uL Hgb 14.3 (14.0-18.0) g/dL Hct 42.6 (42-52) % Plt Count 178 (130-400) K/uL BMP 11/23/21 08:30 Sodium 136 Potassium 4.0 Chloride 106 Carbon Dioxide 24 BUN 19 Creatinine 0.64 Glucose 150 H Calcium 8.6 Liver Function 11/23/21 Range/Units 08:30 Total Bilirubin 0.7 (0.2-1.0) mg/dl AST 18 (13-39) U/L ALT 18 (7-52) U/L Alkaline Phosphatase 72 (34-104) U/L Albumin 3.8 (3.4-5.0) gm/dl Urine 11/23/21 Range/Units 09:00 Urine Color Yellow Urine Appearance Clear (Clear) Urine pH 7.0 (4.5-7.5) Ur Specific Rosie 1.019 (1.000-1.030) Urine Protein Negative (Negative) Urine Glucose (UA) Negative (Negative) Diagnostic Findings Femur X-Ray 11/23/21 07:19 SINGLE VIEW PELVIS; 2 VIEWS RIGHT FEMUR CLINICAL HISTORY: Fall with right hip injury. FINDINGS: 2 AP supine views of the pelvis with AP and crosstable lateral views of the right femur are correlated with pelvic radiograph dated 12/28/2018. The skeletal structures are osteopenic. There is no radiographic evidence of acute fracture involving the pelvis or the left hip. A left hip arthroplasty is in near-anatomic alignment. There is a minimally displaced intertrochanteric fracture of the right proximal femur with overlying soft tissue edema. The distal right femur is intact. The right knee joint is grossly maintained. Lumbosacral spondylosis is partially visualized. Moderate degenerative joint space narrowing is noted in the right hip. IMPRESSION: 1. Intertrochanteric fracture of the right femur. 2. No fracture is seen involving the bony pelvis or the left proximal femur. Electronically signed by: Nicholas Burroughs M.D. 11/23/2021 8:02 AM Pelvis X-Ray 11/23/21 07:20 SINGLE VIEW PELVIS; 2 VIEWS RIGHT FEMUR CLINICAL HISTORY: Fall with right hip injury. FINDINGS: 2 AP supine views of the pelvis with AP and crosstable lateral views of the right femur are correlated with pelvic radiograph dated 12/28/2018. The skeletal structures are osteopenic. There is no radiographic evidence of acute fracture involving the pelvis or the left hip. A left hip arthroplasty is in near-anatomic alignment. There is a minimally displaced intertrochanteric fracture of the right proximal femur with overlying soft tissue edema. The distal right femur is intact. The right knee joint is grossly maintained. Lumbosacral spondylosis is partially visualized. Moderate degenerative joint space narrowing is noted in the right hip. IMPRESSION: 1. Intertrochanteric fracture of the right femur. 2. No fracture is seen involving the bony pelvis or the left proximal femur. Electronically signed by: Nicholas Burroughs M.D. 11/23/2021 8:02 AM Chest X-Ray 11/23/21 07:56 SINGLE VIEW CHEST CLINICAL HISTORY: Fall. Right hip fracture FINDINGS: 2 AP, portable, upright chest radiographs are compared to study dated 09/28/2018. Heart is enlarged noting atherosclerotic calcification of the thoracic aorta. The pulmonary vasculature is noncongested. There are calcified right hilar lymph nodes. Chronic interstitial thickening is similar to previous. There is bibasilar scarring/atelectasis. No airspace consolidation or large pleural effusion is identified. Scattered calcified granulomas are unchanged. No pneumothorax is seen. The skeletal structures are osteopenic. The bony thorax is grossly intact. IMPRESSION: Cardiomegaly with no acute cardiopulmonary abnormality. ACT 112: Negative or not required by law. Electronically signed by: Nicholas Burroughs M.D. 11/23/2021 8:05 AM Code Status & VTE Plan VTE Prophylaxis Plan VTE Prophylaxis will be ordered: Yes Supervising Physician Co-Signing Physician Notes 70-year-old male with PMH of HLD, umbilical hernia s/p repair 5 years ago, Lt hip replacement 3 years ago, No PH of CT/Stroke/Seizure/asthma/COPD presented 2/ to our ED after slipping while getting out of his Van this AM. In the ER, he was found to have Rt intertrochanteric fracture, ortho consulted, for Sx today, NPO status, pt has drank only a cup of black coffee today. 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 Never smoked cigarretes, no illegal drugs and very occasionally drinks alcohol. Pt denies fever, chills, cough, chest pain, palpitations, acute changes in bowel or bladder habit. he has been boosted against COVID. Labs, EKG and Imaging reviewed. Resume home meds, pain control, for Sx per ortho today. Anticoagulation and physical therapy per ortho. Incentive spirometer. Upon Exam GENERAL: Alert and oriented x3. NAD, on RA. HEENT: No pallor, no icterus. Pupils equal, round and reactive to light. Oral mucosa moist. NECK: No JVD, no neck masses. HEART: S1 and S2 heard. Regular rate and rhythm. No murmur, no gallop. RESPIRATORY SYSTEM: Normal AP diameter. No accessory muscle use. No wheezing, no crackles. ABDOMEN: Soft, bowel sounds present, nontender, no distention. CENTRAL NERVOUS SYSTEM: No facial droop. Speech is clear. Obeys simple commands. Moves extremities. EXTREMITIES: No edema, no erythema seen. Decreased ROM RLE; Distal NV status wnl RLE. I have seen and examined the patient and have discussed the case with the provider above. I agree with the assessment and plan as stated. (1) Femur fracture, right Encounter type: initial encounter Femur location: unspecified portion of femur Fracture morphology: unspecified fracture morphology Fracture type: closed Qualified Code(s): S72.91XA - Unspecified fracture of right femur, initial encounter for closed fracture
[2021-11-23] MEDS ORDERED: MIDAZOLAM HCL 1 MG/ML 2ML VIAL ONE ×2 (10:35→11:13)
[2021-11-23] MEDS ORDERED: fentaNYL citrate 100 MCG/2 ML VIAL ONE ×2 (10:35→11:51)
[2021-11-23] MEDS ORDERED: EPINEPHrine INJ 1 MG/ML AMP ONE (11:01)
[2021-11-23] MEDS ORDERED: BUPIVACAINE 0.5 % 5 MG/1 ML MPF 30ML VIAL ONE (11:01)
--- NOTE | 2021-11-23 11:11 | History & Physical Bridge Note ---
Date of Service November 23, 2021 History & Physical Bridge Note I have examined the patient, reviewed the History & Physical and in the interval since the performance of the History & Physical I have noted the following changes of clinical significance: no changes noted
[2021-11-23] MEDS ORDERED: ceFAZolin 2000MG 2,000 MG/15 ML SYR IV SCH (11:15)
[2021-11-23] MEDS ORDERED: ceFAZolin 2,000 MG/15 ML IV PUSH IV ONE (11:15)
[2021-11-23] MEDS ORDERED: PROPOFOL IV EMULSION 10 MG/ML 20 ML VIAL IV ONE ×2 (11:37→12:10)
[2021-11-23] MEDS ORDERED: ePHEDrine sulfate 50 MG/ML AMP ONE (12:10)
[2021-11-23] MEDS ORDERED: PHENYLEPHRINE HCL 10 MG/ML VIAL ONE (12:10)
[2021-11-23] MEDS ORDERED: ONDANSETRON INJ 2 MG/ML 2 ML VIAL ONE (12:10)
[2021-11-23] MEDS ORDERED: DEXAMETHASONE SOD INJ 4 MG/ML VIAL ONE (12:10)
[2021-11-23] MEDS ORDERED: SUCCINYLCHOLINE CHLORIDE 20 MG/ML 10 ML VIAL IV ONE (12:10)
[2021-11-23] MEDS ORDERED: HYDROmorphone INJ 2 MG/ML SYR/VIAL ONE (12:13)
[2021-11-23] MEDS ORDERED: fentaNYL citrate 100 MCG/2 ML VIAL IV PRN (12:51)
[2021-11-23] MEDS ORDERED: NALOXONE HCL 0.4 MG/1 ML VIAL/CARP IV PRN ×2 (12:51→13:44)
[2021-11-23] MEDS ORDERED: ePHEDrine sulfate 50 MG/ML AMP IV PRN (12:51)
[2021-11-23] MEDS ORDERED: LABETALOL HCL IV 5 MG/ML 20ML IV PRN (12:51)
[2021-11-23] MEDS ORDERED: HYDROmorphone INJ 1 MG/ML SYRINGE IV PRN (12:51)
[2021-11-23] MEDS ORDERED: FLUMAZENIL 0.1 MG/1 ML 10 ML VIAL IV PRN (12:51)
[2021-11-23] MEDS ORDERED: PROMETHAZINE HCL 12.5 MG in SODIUM CHLORIDE 0.9% 50 ML IV PRN (12:51)
[2021-11-23] MEDS ORDERED: ONDANSETRON INJ 2 MG/ML 2 ML VIAL IV PRN ×2 (12:51→13:44)
[2021-11-23] MEDS ORDERED: ATROPINE SULFATE 0.1 MG/ML 10ML SYR IV PRN (12:51)
--- NOTE | 2021-11-23 13:00 | Operative Report ---
Post Operative Report Pre & Post Diagnosis Operation Date: 11/23/21 07:00 Pre-Op Diagnosis: Intertrochanteric Fracture Right Femur Post-Op Diagnosis: Intertrochanteric Fracture Right Femur I identified the patient and participated in the time-out.: Yes Procedure Operation Date: 11/23/21 07:00 Actual Procedures p Intertrochanteric Nailing Right Femur(Right) - Leonel Munoz MD Surgeon Leonel Munoz MD Dry Starch Supervisor Prasanth Houston PA-C Estimated Blood Loss 50 Findings Consistent with Post-Op Diagnosis Fluids 1000 cc Specimens None Anesthesia Type General Complications none Disposition Accompanied Patient To Recovery: No Indications Patient is a 70-year-old gentleman who slipped and fell on the ice this morning. He had acute onset of hip pain. He was brought to emergency room where x-rays were right intertrochanteric hip fracture. Patient was admitted by the medicine service, medically optimized, and indicated for surgical treatment. No pre- existing hip pain. Description of Procedure Operative implants consist of: 1. Synthes right 380 mm x 11 mm long trochanteric nail. 2. 120 mm helical blade. 3. 5.0 x 50 mm interlocking screw. The patient was taken to the operating, identified, and placed on the operating table supine position protectors were properly padded. IV antibiotics tried by anesthesia team. A spinal anesthetic was attempted but unsuccessful. Therefore a general anesthetic was implemented. The patient then placed in the fracture table in supine position. The right leg was placed in boot traction the left leg was placed in a well leg hlil. I applied some longitudinal traction of the right leg and internally rotated the foot so the kneecap pointed to the ceiling. X-rays brought in. The fracture is near anatomically aligned. The right hip was then scrubbed with Hibiclens and then prepped with ChloraPrep and draped in usual sterile fashion. A curvilinear incision was made just proximal to the tip of the greater trochanter. Sharp dissection got through subcutaneous tissue down to level gluteal fascia gluteal fascia incised longitudinally in line with skin incision. A guidewire was then placed just lateral to the tip of the trochanter and in line with the IM canal both the AP and lateral planes. At this is verified fluoroscopically. This is then overreamed with a 17 mm reamer. I then placed a guidewire down the canal. We measured for nail length and a 380 mm nail was selected. A 12.5 mm reamer was then placed over the guidewire. A 380 mm x 11 mm right long trochanteric nail were then placed over the guidewire and tapped in position. The lateral aiming arm was attached and advanced to the lateral aspect of the thigh through a stab incision. A guidewire was placed in the central aspect of the femoral head neck in both AP and lateral planes. The length of this was measured and a 120 mm helical blade was selected. The cortical step drill was used to breach the cortex and a triple reamer set at 120. The triple reamer was used. I then placed a helical blade and tapped in position. It was in optimal position. The proximal setscrew was tightened. We then remove the operating device along with the nail guide and some final pictures were obtained. Attention drawn toward distal interlocking. Using the perfect [place] technique I placed a distal interlocking screw through the dynamic hole. A stab incision was made. The drill was used to drill hole and a 50 mm screw was placed. Some final x-rays were obtained. Attention drawn toward closing. Wounds irrigated cups ounce of irrigation fluid. Inject locally with 30 cc of half percent Marcaine with epinephrine. The gluteal fascia was closed with 0 Vicryl suture in [id number] fashion. The subcutaneous tissues at the upper wound were closed with 0 Vicryl suture in the deep tissue. The subcutaneous tissues of all wounds were then closed with 2-0 Dexon suture in buried erupted fashion for skin was closed skin tariq. Leg was then cleaned and dried and sterile dressing was Xeroform, 4 x 4's, ABD pad, foam tape was applied. Patient was then brought out of general incision transferred to the recovery in stable condition. Patient tolerated procedure well and there were no complications. Prasanth Houston, my physician veterinary assistant, was present for the entire procedure. His assistance was required for proper patient positioning, prepping and draping, surgical exposure, retraction, performing the technical details the operation, placement of hardware, closure of the incision, placement of sterile bandage. I attest to the content of the Intraoperative Record and any orders documented therein. Any exceptions are noted below.
--- NOTE | 2021-11-23 13:16 | Fluoroscopy Report ---
FL hip RT 2-3V CLINICAL HISTORY: RT TROCH NAIL COMPARISON STUDY: None FLUOROSCOPY TIME: 68 seconds. FLUOROSCOPIC IMAGES: 4 FINDINGS: Intraoperative spot films were obtained status post placement of a trochanteric nail and a long intramedullary francesca secured by a distal screw. This transfixes an intertrochanteric fracture of t he right femoral neck. IMPRESSION: Status post internal fixation for intertrochanteric fracture of the right femoral neck. ACT 112: Negative or not required by law. Electronically signed by: Aman De La Rosa M.D. 11/23/2021 1:14 PM
--- NOTE | 2021-11-23 13:18 | Anesthesiology Progress Note ---
Date of Service November 23, 2021 Anesthesia Post Procedure Vital Signs Vital Signs: Temp Pulse Pulse Pulse Resp BP BP 11/23/21 13:10 59 L 19 120/65 11/23/21 13:00 65 22 117/62 11/23/21 12:51 36.8 C 69 17 131/71 11/23/21 10:33 36.8 C 65 65 20 134/73 11/23/21 09:00 55 L 18 142/73 H 11/23/21 07:20 37.0 C 56 L 17 156/92 H Pulse Ox 11/23/21 13:10 98 11/23/21 13:00 98 11/23/21 12:51 93 11/23/21 10:33 94 11/23/21 09:00 97 11/23/21 07:20 97 Pain Intensity Right Hip: Pain Intensity: 2 Transfer of Care Handoff Completed per policy Notes Mental Status: alert / awake / arousable Patient Amnestic to Procedure: Yes Nausea / Vomiting: adequately controlled Pain: adequately controlled Airway Patency, RR, SpO2: stable & adequate BP & HR: stable & adequate Hydration State: stable & adequate Anesthetic Complications: no major complications apparent
[2021-11-23] MEDS ORDERED: bisacodyL 10 MG SUPP PR PRN (13:44)
[2021-11-23] MEDS ORDERED: MAGNESIUM HYDROXIDE SUSP 30 ML UDC PO PRN (13:44)
[2021-11-23] MEDS ORDERED: oxyCODONE HCL IR 5 MG TAB (IMMEDIATE RELEASE) PO PRN (13:44)
[2021-11-23] MEDS ORDERED: ACETAMINOPHEN 325 MG TAB PO PRN (13:44)
--- NOTE | 2021-11-23 14:10 | Electrocardiogram Report ---
Test Reason : Blood Pressure : / mmHG Vent. Rate : 051 BPM Atrial Rate : 051 BPM P-R Int : 184 ms QRS Dur : 108 ms QT Int : 430 ms P-R-T Axes : 050 028 015 degrees QTc Int : 396 ms Sinus bradycardia Otherwise normal ECG When compared with ECG of 28-SEP-2018 11:41, No significant change was found Confirmed by Gareth Amaya ([id number]) on 11/23/2021 2:09:59 PM Referred By: REFERRED SELF Confirmed By:Gareth Amaya
[2021-11-23] MEDS: ATORVASTATIN 40 MG TAB PO SCH (21:48)
[2021-11-23] MEDS: ASPIRIN 81 MG ECTAB PO SCH (21:48)
[2021-11-23] MEDS: DOCUSATE SODIUM/SENNA 50/8.6MG TAB PO SCH (21:48)
[2021-11-24] MEDS ORDERED: ceFAZolin 2000MG 2,000 MG/15 ML SYR IV SCH (06:00)
[2021-11-24 06:23] LABS: Basophils # (auto) 0.01 K/uL (0-0.2); Basophils % (auto) 0.1 %; Eosinophils # (auto) 0.06 K/uL (0-0.5); Eosinophils % (auto) 0.7 %; Hematocrit (blood only) 36.7 % (42-52); Hemoglobin 12.1 g/dL (14.0-18.0); Immature Granulocytes # (auto) 0.01 K/uL (0.00-0.02); Immature Granulocytes % (auto) 0.1 %; Lymphocytes # (auto) 0.77 K/uL (1.2-3.4); Lymphocytes % (auto) 8.4 %; Mean Corpuscular Hemoglobin 29.6 pg (25-34); Mean Corpuscular Volume 89.7 fL (80-100); Mean Platelet Volume 11.3 fL (7.4-10.4); Monocytes # (auto) 1.12 K/uL (0.11-0.59); Monocytes % (auto) 12.2 %; Neutrophils # (auto) 7.21 K/uL (1.4-6.5); Neutrophils % (auto) 78.5 %; Platelet Count 165 K/uL (130-400); RDW Coefficient of Variation 13.5 % (11.5-14.5); RDW Standard Deviation 44.3 fL (36.4-46.3); Red Blood Count 4.09 M/uL (4.7-6.1); White Blood Count 9.18 K/uL (4.8-10.8)
[2021-11-24 06:52] LABS: BUN Creatinine Ratio 24.2 (10-20); Creatinine Clr Calc Pharmacy 138.5 ml/min; Est GFR (African American) 114.9 ml/min; Est GFR (Non-African American) 99.1 ml/min; Potassium 3.8 mmol/L (3.5-5.1)
[2021-11-24] MEDS: ASPIRIN 81 MG ECTAB PO SCH ×2 (07:49→20:23)
[2021-11-24] MEDS: oxyCODONE HCL IR 5 MG TAB (IMMEDIATE RELEASE) PO PRN ×3 (07:49→19:30)
--- NOTE | 2021-11-24 09:00 | Progress Notes ---
DATE OF SERVICE: 11/24/2021. SUBJECTIVE: A 70-year-old gentleman now postoperative day 1 from IM nailing of a right intertrochant hugh fracture. He is doing pretty well. Comfortable in bed. Pretty painful when he moves. No new complaints. OBJECTIVE: VITAL SIGNS: Temperature 36.9. Vital signs are stable. GENERAL: Shows a pleasant, elderly male. He is sitting up in bed, looks quite comfortable. EXTREMITIES: Examination of the right leg reveals the leg to be well aligned. Dressing is clean, dr y and intact. Thigh is soft and supple. Dressing is clean, dry and intact. He is neurologically in tact. LABORATORY DATA: Hemoglobin 12.1. Hematocrit 36.7. Electrolytes are stable. ASSESSMENT: A 70-year-old gentleman postoperative day 1 from IM nailing of a right intertrochanteric fracture, doing pretty well. Pain is reasonably well controlled. He is neurologically intact. PLAN: 1. DVT prophylaxis includes thigh-high TEDs, SCDs, and aspirin twice a day. 2. PT/OT. He can weight bear as tolerated, right lower extremity. 3. Pain control, doing okay with current pain regimen. 4. Medical management as per the medicine service. 5. Disposition: He is orthopedically okay for discharge any time medically stable. He is hoping to go home. He does have help with his and his son. We will see how therapy goes today. Job ID: [id number]
--- NOTE | 2021-11-24 12:11 | Hospitalist Progress Note ---
Date of Service November 24, 2021 Assessment & Plan (1) Femur fracture, right: Plan: Patient presented from home after slipping on the ice while trying to getting out of his van. In the ED, found to have a right intertrochanteric femur fracture. S/p Intertrochanteric Nailing Right Femur POD #1 Pain control On ASA 81mg BID for DVT ppx per surgeon PT/OT eval noted. Needs rehab. Patient is motivated and will benefit from rehab. CM working on this (2) Dyslipidemia: Plan: Continue statin Admission and Anticipated Discharge Date Admission Date: November 23, 2021 Subjective Patient seen and examined Reports pain on right hip surgical site is well controlled Denied any nausea, vomiting, diarrhea, abd pain Denied any fevers, chills Denied any cough, chest pain or shortness of breath Physical Exam Constitutional: + well hydrated; no acute distress Eyes: PERRL, conjunctivae normal, anicteric sclerae ENMT: external ear and nose normal, oropharynx normal Respiratory: normal respiratory effort, lungs clear to auscultation Cardiovascular: Rate/Rhythm: regular rate and regular rhythm S1 S2 Gastrointestinal (Abdomen): normal bowel sounds, soft, nontender, no hepatosplenomegaly Musculoskeletal: Clean dressing over right hip surgical site Neurologic: PERRL, EOMI, accommodation nl, no face palsy, no dysarthria Psychiatric: A+Ox3, euthymic affect Results & Data Results & Data ([facility]) Vital Signs (Past 12 Hours) Vital Signs Temp Pulse Resp BP Pulse Ox 11/24/21 11:45 37.1 C 57 L 16 121/64 96 11/24/21 07:36 36.9 C 64 16 119/68 94 11/24/21 03:46 36.8 C 64 15 122/67 93 Laboratory Results Abnormal lab results 11/24/21 11/24/21 Range/Units 05:23 05:23 RBC 4.09 L (4.7-6.1) M/uL Hgb 12.1 L (14.0-18.0) g/dL Hct 36.7 L (42-52) % MPV 11.3 H (7.4-10.4) fL Neut # (Auto) 7.21 H (1.4-6.5) K/uL Lymph # (Auto) 0.77 L (1.2-3.4) K/uL Towns # (Auto) 1.12 H (0.11-0.59) K/uL BUN/Creatinine Ratio 24.2 H (10-20) Glucose 135 H (70-99(Fasting)) mg/dl Calcium 8.0 L (8.5-10.1) mg/dl (1) Femur fracture, right Encounter type: initial encounter Femur location: unspecified portion of femur Fracture morphology: unspecified fracture morphology Fracture type: closed Qualified Code(s): S72.91XA - Unspecified fracture of right femur, initial encounter for closed fracture
[2021-11-24] MEDS: ATORVASTATIN 40 MG TAB PO SCH (20:23)
[2021-11-24] MEDS: DOCUSATE SODIUM/SENNA 50/8.6MG TAB PO SCH (20:23)
[2021-11-24 21:43] VITALS: TEMP 98.2
[2021-11-25 07:29] VITALS: BP 123/71; PULSE 67; O2SAT 92
[2021-11-25 07:29] LABS: Hematocrit (blood only) 35.4 % (42-52); Hemoglobin 11.7 g/dL (14.0-18.0); Mean Corpuscular Hemoglobin 29.8 pg (25-34); Mean Corpuscular Hgb Conc 33.1 g/dL (32-36); Mean Corpuscular Volume 90.3 fL (80-100); Mean Platelet Volume 10.8 fL (7.4-10.4); Platelet Count 138 K/uL (130-400); RDW Coefficient of Variation 13.8 % (11.5-14.5); RDW Standard Deviation 45.3 fL (36.4-46.3); Red Blood Count 3.92 M/uL (4.7-6.1)
[2021-11-25 07:52] LABS: BUN Creatinine Ratio 28.1 (10-20); Calcium 8.2 mg/dl (8.5-10.1); Creatinine Clr Calc Pharmacy 150.7 ml/min; Est GFR (African American) 118.9 ml/min; Est GFR (Non-African American) 102.6 ml/min; Potassium 3.9 mmol/L (3.5-5.1)
[2021-11-25] MEDS: ASPIRIN 81 MG ECTAB PO SCH (07:57)
--- NOTE | 2021-11-25 11:28 | Discharge Summary ---
Date of Service November 25, 2021 Admission HPI Per Admitting Provider 70-year-old male with PMH dyslipidemia, and other problems listed below who presents the ED for evaluation of right hip pain. Patient reports he was getting out of his van earlier this morning when he slipped on the ice and fell onto his right hip. He was able to get up and get back into the van and call for help. Patient reports he was unable to bear weight onto his right leg. Patient was then brought to the ED for further evaluation. Patient denies striking his head or associated loss of consciousness. Patient reports he otherwise has been feeling well recently. Reports that he is very active. Patient reports that he routinely climbs flights of stairs and does not have any cardiopulmonary complaints. Denies any other recent illnesses, fevers, chills. No chest pain or shortness of breath. Denies lightheadedness, dizziness, diaphoresis, syncopal events. No abdominal pain, nausea, vomiting, diarrhea. Denies urinary symptoms. In the ED, patient is found to have a right intertrochanteric femur fracture. Patient is hemodynamically stable. Pain is currently well controlled. Admission Exam Per Admitting Provider Constitutional: WD/WN, vitals as above Eyes: PERRL, conjunctivae normal, anicteric sclerae ENMT: external ear and nose normal, oropharynx normal Respiratory: normal respiratory effort, lungs clear to auscultation Cardiovascular: Rate/Rhythm: regular rate and regular rhythm Vessels: normal peripheral pulses Extremities: no edema Gastrointestinal (Abdomen): normal bowel sounds, soft, nontender, no hepatosp lenomegaly Musculoskeletal: Extremities: no cyanosis and no clubbing RLE mildly shortened and externally rotated Skin: no rashes, warm and dry Neurologic: PERRL, EOMI, accommodation nl, no face palsy, no dysarthria Psychiatric: A+Ox3, euthymic affect Principal Diagnosis Fall Right intertrochanteric femoral fracture S/P Intertrochanteric Nailing Right Femur(Right) Discharge Exam Constitutional + well hydrated; no acute distress Eyes PERRL, conjunctivae normal, anicteric sclerae ENMT external ear and nose normal, oropharynx normal Respiratory normal respiratory effort, lungs clear to auscultation Cardiovascular Rate/Rhythm: regular rate and regular rhythm S1 S2 Gastrointestinal (Abdomen) normal bowel sounds, soft, nontender, no hepatosplenomegaly Musculoskeletal Clean dressing over right hip surgical site Neurologic PERRL, EOMI, accommodation nl, no face palsy, no dysarthria Psychiatric A+Ox3, euthymic affect Discharge Data Allergies Allergy/AdvReac Type Severity Reaction Status Date / Time No Known Allergies Allergy Verified 11/23/21 08:14 Consultations 11/23/21 08:09 ED Decision to Admit Stat 11/23/21 13:44 Consult Anesthesiology Routine Procedures Performed Operation Date: 11/23/21 07:00 Actual Procedures p Intertrochanteric Nailing Right Femur(Right) - Leonel Munoz MD Ordered Studies 11/23/21 11:30 FL hip RT 2-3V Routine Hospital Course (1) Femur fracture, right: Patient presented from home after slipping on the ice while trying to getting out of his van. In the ED, found to have a right intertrochanteric femur fracture on XR S/p Intertrochanteric Nailing Right Femur POD #2 On ASA 81mg BID for DVT ppx per surgeon Pain is controlled Patient had PT/OT eval and rehab was recommended Patient discharged to [facility] for rehab. Needs to follow up with Surgeon in 2- 3 weeks (2) Dyslipidemia: Total Time Total Time Spent Total Time Spent (In Minutes): 40 Total Time Includes: Examination of the Patient, Discharge Planning and Medication Reconciliation Discharge Plan Discharge Items Patient Disposition: Transfer Inpatient Rehab Fac Reason For Visit: Fall with fracture Discharge Diagnosis: Fall Right intertrochanteric femoral fracture S/P Intertrochanteric Nailing Right Femur(Right) Activity: Per Instructions section Weightbearing: Full weightbearing Non-emergency contact: Primary Care Provider Call non-emergency contact if: you have any medication questions and your symptoms worsen Follow-up/Referrals: Leonel Munoz MD [Physician] - (Orthopedic follow-up 2-3 weeks post-op.) Sekou Mccoy DO [Primary Care Provider] - Diet: Regular Addtl Attending Provider Instructions: Mr Patterson. You were admitted to the hospital after a fall and right hip pain. You were evaluated and found to have right hip fracture that required surgery. You are doing well and being discharged to [facility] for rehab. Please ensure follow up with your Primary Doctor and Surgeon. It was a pleasure taking care of you. 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 Routine incision care. CHange dressing daily. May remove dressing to shower. Pending Studies at Discharge: No Stand-Alone Forms: My [facility] Skilled Items Patient informed of condition?: Yes DNR: No Discharge Level of Care: Acute rehab Communicable Disease: No Discharge Prognosis: Stable Lines: None Urinary Catheter: No Medications and DC Order Prescriptions: New acetaminophen 325 mg Tablet 650 mg PO Q4H PRN (Reason: Mild/moderate pain) Qty: 50 RF: 0 aspirin 81 mg Tablet,Delayed Release (Dr/Ec) 81 mg PO BID 14 Days Qty: 28 RF: 0 oxycodone 5 mg Tablet 5 mg PO Q4H PRN (Reason: Severe pain) Qty: 30 RF: 0 polyethylene glycol 3350 [Miralax] 17 gram Powder In Packet 17 g PO DAILY PRN (Reason: constipation) Qty: 30 RF: 0 sennosides-docusate sodium [Senokot-S] 8.6-50 mg Tablet 2 tab PO HS Qty: 30 RF: 0 bisacodyl 10 mg Suppository 10 mg [place] DAILY PRN (Reason: constipation) Qty: 12 RF: 0 Continued ginseng 100 mg Capsule 100 mg PO QAM RF: 0 cyanocobalamin (vitamin B-12) [Vitamin B-12] 1,000 mcg Tablet 1,000 mcg PO QAM RF: 0 omega [id number]-fish oil [Fish Oil] 1,000 mg (120 mg-180 mg) Capsule 1 tab PO QAM RF: 0 multivitamin Tablet 1 tab PO QAM RF: 0 atorvastatin 40 mg tablet 40 mg PO HS RF: 0 Discharge Orders: Discharge Order (Routine); Ordered 11/25/21 Ordered By: Phyllis Briceno Admission Data Admit Date/Time: 11/23/21 08:29 Attending Provider: Phyllis Briceno I. Admit Provider: Phyllis Briceno I. Primary Care Provider: Sekou Mccoy Other Providers: Phyllis Briceno I. ; Hemant Bee ; [facility] Other Interventions: Discharge Summary Assessment (RN) Last Done: 11/25/21 11:44
--- NOTE | 2021-11-25 16:43 | Progress Notes ---
DATE OF NOTE: 11/25/2021. SUBJECTIVE: A 70-year-old gentleman now postop day 2 from IM nailing of a right intertrochanteric fr acture. He is doing pretty well. Some moderate pain and getting around reasonably well. No other c omplaints. No other injuries. OBJECTIVE: VITAL SIGNS: Temperature 36.8. Vital signs are stable. GENERAL: Shows a pleasant, elderly male. Lying in bed, looks pretty comfortable. EXTREMITIES: Examination of the right hip and leg reveals the dressing to be clean, dry and intact. Thigh is soft and supple. He can dorsiflex and plantarflex his foot appropriately. NEUROLOGIC: He is neurologically intact. LABORATORY DATA: Hemoglobin 11.7. Hematocrit 35.4. Electrolytes are stable. ASSESSMENT: A 70-year-old gentleman postop day 2 from IM nailing of a right intertrochanteric fractu re. He is doing reasonably well. Pain is controlled. PLAN: 1. DVT prophylaxis includes thigh-high TEDs, SCDs, and aspirin twice a day. 2. PT, OT, weightbear as tolerated. 3. Pain control, doing reasonably well with current pain regimen. 4. Disposition: Plan is to discharge him to home once medically stable. He is orthopedically stabl e at any time. I need to see him back in 2-3 weeks out from surgery date. Any orthopedic questions can be directed to me at [phone]. Job ID: [id number]
[2021-11-25] MEDS ORDERED: POLYETHYLENE (MIRALAX) 17 GM PACK PO SCH (18:00)
== END 2021-11-25 14:19 | DRG 482 ==
LOC: ED 07:10 → 3N 08:29